=== PATIENT | female | born 1950 | race Caucasian/White ===

== ENCOUNTER 2017-03-02 23:53 | Inpatient (IN) | payer OTHER ==
[~2017-03-02] VITALS: Ht 157.5 cm; Wt 43.1 kg
[2017-03-03 00:49] LABS: BASOPHIL % 0.7 % (0-2); PLATELET COUNT 277 x10^3mcL (130-400); RED CELL DISTRIBUTION WIDTH 13.4 % (11.5-14.5)
[2017-03-03 01:02] LABS: CALCIUM 8.6 mg/dL (8.5-10.1); CARBON DIOXIDE 29.5 mmol/L (21-32); CHLORIDE SERUM 105 mmol/L (98-107); CREATININE SERUM 0.6 mg/dL (0.6-1.0); GFR1 > 60 mL/min; GLUCOSE SERUM 100 mg/dL (74-106); POTASSIUM SERUM 3.9 mmol/L (3.5-5.1); SODIUM SERUM 143 mmol/L (136-145)
[2017-03-03 01:07] LABS: ALBUMIN 3.5 g/dL (3.4-5.0); ALKALINE PHOSPHATASE 128 U/L (46-116); ALT/SGPT 34 U/L (14-59); AST/SGOT 32 U/L (15-37); BILIRUBIN TOTAL 0.2 mg/dL (0.20-1.00); TOTAL PROTEIN, SERUM 7.3 g/dL (6.4-8.2)
[2017-03-03 03:50] VITALS: BP 163/68
[2017-03-03 05:20] VITALS: BP 129/61
[2017-03-03 09:03] VITALS: BP 169/74
[2017-03-03 09:26] VITALS: BP 124/57
[2017-03-03 18:00] VITALS: BP 119/55
[2017-03-03] MEDS ORDERED: KALEXATE1 PDR PO (18:57)
[2017-03-03] MEDS ORDERED: MECLIZINE HYDRO25 M1 PO (20:36)
[2017-03-03] MEDS ORDERED: LISINOPRIL10 MG PO (20:36)
[2017-03-03 20:42] VITALS: BP 119/55
== END 2017-03-03 21:07 | disposition home or self-care (01) | DRG 111 ==
LOC: ED 23:53 → MU 03-03 02:52
PROVIDERS: Emergency Medicine; ADMIT Internal Medicine Pulmonary Disease
DX: R42 Dizziness and giddiness (principal); Z85.01 Personal history of malignant neoplasm of esophagus; I16.0 Hypertensive urgency; Z87.891 Personal history of nicotine dependence
CPT/HCPCS: 83880; J7030; J8597; Q0092